=== PATIENT | male | born 1950 | race Caucasian/White ===

== ENCOUNTER 2016-03-20 03:56 | Emergency (ER) | payer OTHER ==
[~2016-03-20] VITALS: Ht 170.2 cm; Wt 72.6 kg
[2016-03-20] MEDS ORDERED: AMLODIPINE BESYL5 M1 PO (07:52)
[2016-03-20] MEDS ORDERED: VALSARTAN320 M1 PO (07:52)
[2016-03-20] MEDS ORDERED: JALYN 0.5-0.41 EACH PO (07:53)
[2016-03-20] MEDS ORDERED: TRIAMTERENE-HC1 EAC1 PO (07:53)
[2016-03-20] MEDS ORDERED: PRAVASTATIN SOD40 M2 PO (07:53)
[2016-03-20] MEDS ORDERED: CO Q-10100 MG PO (07:54)
--- NOTE | 2016-03-20 09:06 | RADIOLOGY REPORT ---
EXAMINATION: XR SHOULDER, LEFT CLINICAL INFORMATION: Trauma. COMPARISON: None. TECHNIQUE: 4 views of left shoulder. FINDINGS: There are no fractures or dislocations. Calcification in the supraspinatus tendon is consistent with calcific tendinitis. Articular surfaces are well preserved. Clavicle is normal. Visualized portions of the left rib cage are normal. IMPRESSION: Calcific tendinitis. No fracture or dislocation.
--- NOTE | 2016-03-20 09:16 | ED UPPER/LOWER EXTREMITY COMPL ---
History of Present Illness General Chief Complaint: Shoulder Injury Stated Complaint: LT SHOULDER PAIN STARTED TONIGHT WHILE IN SHOWER Source: patient, old records Exam Limitations: no limitations Vital Signs & Intake/Output Vital Signs & Intake/Output Vital Signs Date Time Temp Pulse Resp B/P Pulse O2 O2 Flow FiO2 Ox Delivery Rate 03/20 0929 97.7 80 16 133/74 99 Room Air 03/20 0819 97.3 03/20 0507 97.3 81 18 137/84 99 Room Air Allergies Coded Allergies: Penicillins (Mild, 03/20/16) Reconcile Medications Amlodipine Besylate 5 MG TABLET 1 TAB PO DAILY HEART (Reported) Dutasteride/Tamsulosin HCl (Sari 0.5-0.4 MG Capsule) 0.5 MG-0.4 MG CPMP.24HR 1 CAP PO DAILY PROSTATE (Reported) Ibuprofen 800 MG TABLET 1 TAB PO Q6PRN PRN pain Oxycodone HCl/Acetaminophen (Percocet 5-325 MG Tablet) 5 MG-325 MG TABLET 1-2 TAB PO Q6PRN PRN severe pain Pravastatin Sodium 40 MG TABLET 1 TAB PO DAILY CHOLESTEROL (Reported) Triamterene/Hydrochlorothiazid (Triamterene-Hctz 37.5-25 MG Tb) 37.5 MG-25 MG TABLET 0.5 TAB PO DAILY HEART (Reported) Ubidecarenone (Co Q-10) 100 MG CAPSULE 1 CAP PO DAILY SUPPLEMENT (Reported) Valsartan 320 MG TABLET 1 TAB PO DAILY HEART (Reported) Triage Note: PT TO ED C/O LEFT SHOULDER PAIN SINCE 6 PM YESTERDAY. PT REPORTS HEARING A POP SOUND WHILE WASHING HIS HAIR IN THE SHOWER. NO OBVIOUS DEFORMITY TO SHOULDER. LIMITED MOVEMENT DUE TO PAIN. STRONG L RADIAL PULSE. Triage Nurses Notes Reviewed? yes Onset: Evening Duration: hour(s):, constant, continues in ED Timing: recent history Severity: moderate Pain/Injury Location: Left: Shoulder. Method of Injury: unknown Modifying Factors: Improves With: immobilization, rest. Worsens With: movement. Associated Symptoms: GCS 15 since, stiffness HPI: The evening prior to admission patient recalls reaching behind to close a door and while showering shampooing his hair he felt a sharp mild to moderate pain to the left shoulder worse with movement palpation. He denies injury fever chills nausea vomiting diarrhea abdominal pain chest pain shortness breath headache dysuria rash bleeding change in motor sensory function. Past History Travel History Traveled to [place] past 21 day No Medical History Any Pertinent Medical History? see below for history Neurological: NONE EENT: NONE Cardiovascular: hypertension Respiratory: NONE Gastrointestinal: NONE Hepatic: NONE Renal: NONE Musculoskeletal: NONE Psychiatric: NONE Endocrine: NONE Blood Disorders: NONE Surgical History Surgical History: non-contributory Psychosocial History What is your primary language Upper Sorbian Tobacco Use: Never used Family History Hx Contributory? No Review of Systems Review of Systems Constitutional: Reports: no symptoms. EENTM: Reports: no symptoms. Respiratory: Reports: no symptoms. Cardiovascular: Reports: no symptoms. Gastrointestinal/Abdominal: Reports: no symptoms. Genitourinary: Reports: no symptoms. Musculoskeletal: Reports: see HPI, joint pain. Skin: Reports: no symptoms. Neurological/Psychological: Reports: no symptoms. Hematologic/Endocrine: Reports: no symptoms. Immunological: Reports: no symptoms. All Other Systems: Reviewed and Negative Physical Exam Physical Exam General Appearance: well developed/nourished, alert, awake, anxious, mild distress Head: atraumatic, normal appearance Eyes: Bilateral: normal appearance, PERRL, EOMI. Ears, Nose, Throat: normal pharynx, normal ENT inspection, hearing grossly normal Neck: normal inspection, supple, full range of motion, no midline tenderness Cardiovascular/Respiratory: normal breath sounds, normal peripheral pulses, regular rate/rhythm, no respiratory distress Peripheral Pulses: 4+ carotid (R), 4+ carotid (L) Back: normal inspection, normal range of motion, no vertebral tenderness Shoulder Left: normal inspection, tenderness, limited range of motion Shoulder Right: normal range of motion, normal inspection Elbow Left: normal range of motion, normal inspection Elbow Right: normal inspection Hand Left: normal inspection, normal range of motion Hand Right: normal inspection, normal range of motion Upper Extremity Reflexes: 2+: bicep (R), bicep (L), tricep (R), tricep (L). Leg Left: normal range of motion, normal inspection Leg Right: normal range of motion, normal inspection Hip Left: normal range of motion, normal inspection Hip Right: normal range of motion, normal inspection Knee Left: normal range of motion, normal inspection Knee Right: normal range of motion, normal inspection Foot Left: normal inspection, normal range of motion Foot Right: normal inspection, normal range of motion Lower Extremity Reflexes: 2+: knee (R), knee (L), ankle (R), ankle (L). Neurologic/Tendon: normal sensation, normal motor functions, normal tendon functions Skin: intact, normal color, warm/dry Lymphatic: no anterior cervical lara Progress Differential Diagnosis: fracture, gout, sprain Plan of Care: Orders Procedure Date/time Status Durable Medical Equipment 03/20 916 Active Diagnostic Imaging: Viewed by Me: Radiology Read. Discussed w/RAD: Radiology Read. Radiology Impression: calcific deposit @ suprapinatus Departure Departure Time of Disposition: 914 Disposition: HOME OR SELF CARE Condition: Stable Clinical Impression Primary Impression: Calcific tendonitis of left shoulder Referrals: KAROLINA BANDA,RAGINI EDWARDS MD,SAEID (PCP/Family) Departure Forms: Customer Survey General Discharge Information Prescriptions: Current Visit Scripts Ibuprofen 1 TAB PO Q6PRN PRN pain #50 TAB Oxycodone HCl/Acetaminophen (Percocet 5-325 MG Tablet) 1-2 TAB PO Q6PRN PRN severe pain #15 TAB
[2016-03-20] MEDS ORDERED: PERCOCET 5-3251 EACH PO (09:18)
[2016-03-20] MEDS ORDERED: IBUPROFEN800 M1 PO (09:18)
[2016-03-20 09:29] VITALS: BP 133/74
== END 2016-03-20 09:20 ==
LOC: ERH 03:56
DX: M75.32 Calcific tendinitis of left shoulder (principal)
CPT/HCPCS: 73030-LT